=== PATIENT | male | born 1955 ===

== ENCOUNTER 2018-11-05 12:43 | Emergency (ER) | payer MEDICAID, OTHER ==
[2018-11-05 12:54] VITALS: RESP 16; TEMP 98.2; O2SAT 98
[2018-11-05] MEDS ORDERED: Sodium Chloride 0.9% 1,000 ML ONE (13:05)
--- NOTE | 2018-11-05 13:43 | RAD ---
HISTORY: cough COMPARISON: None available. TECHNIQUE: Chest PA and lateral FINDINGS: LUNGS: No focal consolidation. Please note that chest x-ray has limited sensitivity for the detection of pulmonary masses. PLEURA: No significant pleural effusion identified. No definite pneumothorax . CARDIOVASCULAR: Heart size appears within normal limits. Faint atherosclerotic calcifications. OSSEOUS STRUCTURES: Degenerative changes. VISUALIZED UPPER ABDOMEN: Unremarkable. OTHER FINDINGS: None. IMPRESSION: No focal consolidation.
[2018-11-05 13:51] VITALS: BP 167/87; PULSE 80
--- NOTE | 2018-11-05 14:01 | C.PDOC ---
History Of Present Illness The patient reports 1 week history of cough and congestion, which is associated with subjective fever. The patient reports that he has used OTC medications without relief. Denies chest pain, SOB, abdominal pain, vomiting, diarrhea, Time Seen by Provider: 11/05/18 12:52 Chief Complaint (Nursing): Cough, Cold, Congestion History Per: Patient Past Medical History Vital Signs: Last Vital Signs Temp 98.2 F 11/05/18 12:47 Pulse 80 11/05/18 13:51 Resp 16 11/05/18 13:51 BP 167/87 H 11/05/18 13:51 Pulse Ox 98 11/05/18 13:51 - Medical History PMH: HTN Denies: HIV, Chronic Kidney Disease - [facility] INTRODUCTION OF SERUM/TOX/VACCINE INTO MUSCLE, PERC APPROACH (08/15/15) Family History: States: Unknown Family Hx - Social History Hx Tobacco Use: No Hx Alcohol Use: No Hx Substance Use: No - Immunization History Hx Tetanus Toxoid Vaccination: No Hx Influenza Vaccination: No Hx Pneumococcal Vaccination: No Review Of Systems Constitutional: Negative for: Weakness Eyes: Negative for: Pain ENT: Negative for: Ear Pain Cardiovascular: Negative for: Chest Pain Respiratory: Negative for: Cough, Shortness of Breath Gastrointestinal: Negative for: Nausea, Vomiting Genitourinary: Negative for: Dysuria Musculoskeletal: Negative for: Neck Pain Skin: Negative for: Rash Neurological: Negative for: Weakness, Numbness Physical Exam - Physical Exam Appears: Non-toxic, No Acute Distress Skin: Normal Color, Warm, No Rash Head: Atraumatic, Normacephalic Eye(s): bilateral: Normal Inspection, PERRL, EOMI Ear(s): Bilateral: Normal Nose: Discharge (clear) Oral Mucosa: Moist Throat: No Erythema, No Exudate Neck: Normal ROM, Supple Lymphatic: Normal Exam Chest: Symmetrical, No Tenderness Cardiovascular: Rhythm Regular, No Friction Rub, No Murmur Respiratory: Normal Breath Sounds, No Rales, No Rhonchi, No Stridor, No Wheezing Gastrointestinal/Abdominal: Bowel Sounds (active), Soft, No Tenderness Back: Normal Inspection, No CVA Tenderness Extremity: Normal ROM, No Swelling Neurological/Psych: Oriented x3, Normal Speech, Normal Motor Gait: Steady ED Course And Treatment O2 Sat by Pulse Oximetry: 98 (on ) Pulse Ox Interpretation: Normal (Ra) Medical Decision Making Medical Decision Making: CXR shows some ?infiltrates. On re-exam, the patient reports improvement of symptoms. Vitals are WNLs, heart is RRR, abdomen is soft, non-tender and the patient is tolerating Po well. Patient is A&O x 3 and ambulatory in the ED with steady gait. Disposition - Disposition Referrals: [facility] [Outside] Disposition: HOME/ ROUTINE Disposition Time: 13:58 Condition: STABLE Additional Instructions: Follow up with the medical doctor within 1-2 days. Return if worsened. Prescriptions: Azithromycin [Zithromax] 250 mg PO DAILY #4 tab Benzonatate 200 mg PO TID PRN #30 capsule PRN Reason: Cough predniSONE [Prednisone] 20 mg PO BID #10 tab Instructions: Acute Bronchitis Forms: [facility] (Portuguese) Print Language: PORTUGUESE - Clinical Impression Clinical Impression: Bronchitis
== END 2018-11-05 14:17 | disposition home or self-care (01) ==
LOC: C.ER 12:43
DX: J40 Bronchitis, not specified as acute or chronic (principal)